=== PATIENT | male | born 1965 | race Caucasian/White ===

== ENCOUNTER 2017-10-13 18:09 | Emergency (ER) | payer BC ==
[~2017-10-13] VITALS: Ht 182.9 cm; Wt 106.0 kg
[2017-10-13 18:35] VITALS: BP 150/98
[2017-10-13] MEDS ORDERED: clindamycin 150mg capsule PO SCH (19:00)
[2017-10-13] MEDS ORDERED: HYDR-565 PO (19:03)
[2017-10-13] MEDS ORDERED: CLIN-80 PO (19:03)
[2017-10-13] MEDS ORDERED: HYDROcodone/acetaminophen 10/325mg tab PO ONE (19:15)
== END 2017-10-13 19:20 | disposition home or self-care (01) ==
LOC: ER 18:09
DX: R60.9 Edema, unspecified (principal); B95.8 Unspecified staphylococcus as the cause of diseases classified elsewhere
CPT/HCPCS: 99283

== ENCOUNTER 2019-03-15 07:33 | Emergency (ER) | payer BC ==
[~2019-03-15] VITALS: Ht 182.9 cm; Wt 96.4 kg
[~2019-03-15 07:33] MED LIST: CLIN-96 PO
[2019-03-15 07:38] VITALS: BP 122/76
[2019-03-15] MEDS ORDERED: TRAM50TA2 PO (07:59)
== END 2019-03-15 08:15 | disposition home or self-care (01) ==
LOC: ER 07:34
DX: S46.002A Unspecified injury of muscle(s) and tendon(s) of the rotator cuff of left shoulder, initial encounter (principal); E78.00 Pure hypercholesterolemia, unspecified; I10 Essential (primary) hypertension; F17.200 Nicotine dependence, unspecified, uncomplicated; Z79.899 Other long term (current) drug therapy; X50.1XXA Overexertion from prolonged static or awkward postures, initial encounter; V92.09XA Drowning and submersion due to fall off unspecified watercraft, initial encounter; Y93.39 Activity, other involving climbing, rappelling and jumping off; Y92.89 Other specified places as the place of occurrence of the external cause; Y99.8 Other external cause status
CPT/HCPCS: 73030; 99283

== ENCOUNTER 2022-12-18 09:02 | Emergency (ER) | payer BC ==
[~2022-12-18] VITALS: Ht 182.9 cm; Wt 112.3 kg
[~2022-12-18 09:02] MED LIST changes: -CLIN-96 PO; +CLIN-97 PO
[2022-12-18 09:09] VITALS: BP 121/87
[2022-12-18] MEDS ORDERED: ORPH100T2 PO ×2 (10:24→10:50)
[2022-12-18] MEDS ORDERED: orphenadrine citrate 60mg/2ml inj. IM ONE (10:25)
== END 2022-12-18 10:50 | disposition home or self-care (01) ==
LOC: ER 09:02
DX: S39.012A Strain of muscle, fascia and tendon of lower back, initial encounter (principal); M62.830 Muscle spasm of back; R53.1 Weakness; E78.00 Pure hypercholesterolemia, unspecified; I10 Essential (primary) hypertension; Z79.899 Other long term (current) drug therapy; G89.29 Other chronic pain; X58.XXXA Exposure to other specified factors, initial encounter; Y93.89 Activity, other specified; Y92.89 Other specified places as the place of occurrence of the external cause; Y99.8 Other external cause status
CPT/HCPCS: 96372; 99283; J2360

== ENCOUNTER 2023-09-01 11:05 | Emergency (ER) | payer BC ==
[~2023-09-01] VITALS: Ht 182.9 cm; Wt 104.5 kg
[~2023-09-01 11:05] MED LIST changes: +ORPH100T4 PO
[2023-09-01 11:14] VITALS: BP 106/57; PULSE 91; RESP 18; TEMP 98.5; O2SAT 96
== END 2023-09-01 13:02 | disposition home or self-care (01) ==
LOC: ER 11:06
DX: B34.9 Viral infection, unspecified (principal); M54.2 Cervicalgia; J02.9 Acute pharyngitis, unspecified; E78.00 Pure hypercholesterolemia, unspecified; I10 Essential (primary) hypertension; Z79.899 Other long term (current) drug therapy
CPT/HCPCS: 99282